=== PATIENT | male | born 1960 | race Caucasian/White ===

== ENCOUNTER 2021-06-03 13:22 | Day surgery (SDC) | payer OTHER ==
[~2021-06-03] VITALS: Ht 188 cm; Wt 81.2 kg
[~2021-06-03 13:22] MED LIST: GABA300 PO; GLIM2 PO; GLUCHON; HYDACE10B PO; HYDACE5; HYDACE5 PO; HYDACE7.5 PO; LORA.5 PO; LORA1 PO; NAPR500 PO; NEOPOLHCSU AS; Norco 5-325 Ta1 EACH PO; OMEP10ER PO; OXYC5 PO; PREG25 PO; PROP10 PO; RANI150 PO; VIVLODEX10 MG PO; [UNRECOGNIZED DRUG - REMARK]
[2021-06-03] MEDS ORDERED: JARDIANCE25 MG PO (14:33)
[2021-06-03] MEDS ORDERED: METF500 PO (14:33)
[2021-06-03] MEDS ORDERED: NOVOLOG FL100 UNIT/3 SC (14:35)
[2021-06-03] MEDS ORDERED: INSULANI SC (14:36)
--- NOTE | 2021-06-03 15:38 | NUR ---
06/03/21 1537 Alison Houston DEXTROSE 5% 250ML RUN IN WITH BAG OF LR FOR BS OF 72. PT NOT SYMPTOMATIC
== END 2021-06-03 16:28 | disposition home or self-care (01) ==
LOC: ORSCSDS 13:22
PROVIDERS: Internal Medicine Gastroenterology
PROC: 0DBN8ZX Excision of Sigmoid Colon, Via Natural or Artificial Opening Endoscopic, Diagnostic (ICD-10-PCS; principal; 2021-06-03 14:30)
DX: Z12.11 Encounter for screening for malignant neoplasm of colon (principal); K63.5 Polyp of colon; K57.30 Diverticulosis of large intestine without perforation or abscess without bleeding; K64.8 Other hemorrhoids; E11.9 Type 2 diabetes mellitus without complications; Z79.4 Long term (current) use of insulin; Z79.899 Other long term (current) drug therapy
CPT/HCPCS: 82947; 88305; J2704; J7060; J7120

== ENCOUNTER 2023-04-06 10:27 | Day surgery (SDC) | payer OTHER ==
[~2023-04-06] VITALS: Ht 188 cm; Wt 79.0 kg
[2023-04-06] VITALS (19 sets, daily range): BP systolic 96–127; BP diastolic 56–89
[~2023-04-06 10:27] MED LIST changes: +ASPI81CH PO; +ATOR10 PO; +Acetaminophen 500 MG Tab PO SCH; +CeFAZolin Sodium 2,000 MG in NS 50 ML IV SCH; +Chlorhexidine Mouth Care 15 ML UDC MT SCH; +INSULANI SC; +JARDIANCE25 MG PO; +LOSA50 PO; +Lactated Ringer's 1,000 ML IV SCH; +METF500 PO; +METO25 PO; +NOVOLOG FL100 UNIT/3 SC; +OxyCODONE HCL 10 MG TABCR PO SCH; +Ropivacaine 0.5% HCl/Pf 67.75 MG,EPINEPHrine HCL 0.25 MG,Ketorolac Tromethamine 15 MG,C... INFIL SCH
[2023-04-06] MEDS ORDERED: QUET100 PO (10:51)
[2023-04-06] MEDS ORDERED: TRESIBA100 UNIT/2 SC (10:52)
[2023-04-06] MEDS ORDERED: NOVOLOG100 UNIT/3 SC (10:53)
[2023-04-06] MEDS ORDERED: TRANEXAMIC ACID IV SCH (10:55)
[2023-04-06] MEDS ORDERED: NS IV SCH (10:55)
[2023-04-06] MEDS ORDERED: FentaNYL Citrate 50 MCG/ML 2 ML Injection ONE (11:20)
[2023-04-06] MEDS ORDERED: propofoL 40 ML IV ONE (11:20)
[2023-04-06] MEDS ORDERED: Lidocaine HCl 2% 20 ML MDV ONE (11:21)
[2023-04-06] MEDS ORDERED: Metoclopramide HCl 5MG / ML 2ML Vial IV PRN ×2 (11:30→13:25)
[2023-04-06] MEDS ORDERED: Midazolam HCl 1MG / ML 2ML Vial IV PRN (11:30)
--- NOTE | 2023-04-06 11:34 | NUR ---
Ambulatory in Day Surgery WITH STEADY GAIT. ABLE TO USE RESTROOM INDEPENDENTLY. Surgical site prepped with 2% Chlorhexidine cloth wipe, SMALL BRUISE NOTED ON INSIDE OF RIGHT KNEE BUT SKIN IS INTACT. History, Chart, Medications and Allergies reviewed before start of procedure. Pre-Op teaching done. Pt verbalizes understanding, ALSO AT BEDSIDE. Lungs clear T/O to Auscultation. Patient confirms NPO status and agrees with scheduled surgery. GLASSES GIVEN TO IN PRE OP. HEARING AIDS TO BE PLACED IN PACU WITH PATIENT STICKER.
[2023-04-06] MEDS ORDERED: Lidocaine HCl 1% 5 ML SYR INJ ONE (11:35)
[2023-04-06] MEDS ORDERED: FentaNYL Citrate 50 MCG/ML 2 ML Injection IV PRN ×3 (11:35)
[2023-04-06] MEDS ORDERED: HYDROmorphone HCl/Pf 1MG SYR IV PRN ×2 (11:35→13:30)
[2023-04-06] MEDS ORDERED: Ondansetron HCl 2 MG / ML 2ML Vial IV PRN ×2 (11:35→13:25)
[2023-04-06] MEDS ORDERED: Phenylephrine HCl 100 MCG/ML-NS 10MLSYR (1MG/10ML) ONE ×3 (11:36→14:18)
[2023-04-06] MEDS ORDERED: FLU VACC QS2023-24(6MOS UP)/PF 60 MCG/0.5 ML SYRINGE IM SCH (13:25)
[2023-04-06] MEDS ORDERED: OxyCODONE HCL 5 MG TAB PO PRN ×2 (13:25→13:35)
[2023-04-06] MEDS ORDERED: Magnesium Hydroxide Conc 10 ML UDC PO PRN (13:25)
[2023-04-06] MEDS ORDERED: Promethazine HCl 25 MG Tab PO PRN (13:30)
[2023-04-06] MEDS ORDERED: Lactated Ringer's 1,000 ML IV SCH (13:30)
[2023-04-06] MEDS ORDERED: Bisacodyl 10 MG Supp PR PRN (13:30)
[2023-04-06] MEDS ORDERED: DiphenhydrAMINE HCL 25 MG Cap PO PRN (13:30)
[2023-04-06] MEDS ORDERED: ePHEDrine Sulfate 50 MG/ML 1ML Injection ONE (13:41)
[2023-04-06] MEDS ORDERED: propofoL 60 ML IV ONE (13:53)
--- NOTE | 2023-04-06 14:04 | NUR ---
04/06/23 1404 Kim Sandoval SPINAL NERVE BLOCK COMPLETED BY DR. TEJADA UPON ENTRY TO OR. PT TOLERATED WELL.
[2023-04-06] MEDS ORDERED: Acetaminophen 500 MG Tab PO SCH (16:00)
[2023-04-06] MEDS ORDERED: Metoclopramide HCl 5MG / ML 2ML Vial ONE (16:10)
--- NOTE | 2023-04-06 17:50 | NUR ---
ADMIT TO ROOM 221 PATIENT POST OP VITALS STABLE, AQUACEL DRESSING TO R KNEE, C/D/I. POLAR MATTHEW IN PLACE. PATIENT HAVING NAUSEA AND VOMITS 150ML. MEDICATED WITH ZOFRAN.HAS BUD SENSATION TO BILAT FEET. NUMB TO BILAT UPPER LEGS. UNABLE TO WIGGLE TOES. IV FLUIDS RUNNING. RESTING AT THIS TIME. CALL LIGHT IN REACH. SCD'S ON.
[2023-04-06] MEDS ORDERED: Ketorolac Tromethamine 15mg Vial IV SCH (18:00)
[2023-04-06] MEDS ORDERED: QUEtiapine Fumarate 100 MG Tab PO SCH (21:00)
[2023-04-06] MEDS ORDERED: Docusate Sodium 100 MG Cap PO SCH (21:00)
[2023-04-06] MEDS ORDERED: CeFAZolin Sodium 2,000 MG in NS 50 ML IV SCH (21:30)
[2023-04-07 04:35] LABS: BASOPHILS ABSOLUTE AUTO 0.04 K/mm3 (0.00-0.23); BASOPHILS PERCENT AUTO 0 % (0-2); EOSINOPHILS ABSOLUTE AUTO 0.09 K/mm3 (0.00-0.68); EOSINOPHILS PERCENT AUTO 1 % (0-6); Hematocrit 32.7 % (37.0-53.0); Hemoglobin 10.6 g/dL (13.5-17.5); IMMATURE GRAN ABSOLUTE AUTO 0.04 K/mm3 (0.00-0.10); IMMATURE GRAN PERCENT AUTO 0 % (0-1); LYMPHOCYTES ABSOLUTE AUTO 0.76 K/mm3 (0.84-5.20); LYMPHOCYTES PERCENT AUTO 9 % (21-46); MONOCYTES ABSOLUTE AUTO 0.66 K/mm3 (0.16-1.47); MONOCYTES PERCENT AUTO 7 % (4-13); Mean Corpuscular HGB Conc 32.4 g/dL (31.5-36.5); Mean Corpuscular Volume 89 fL (80-100); NEUTROPHILS PERCENT AUTO 82 % (41-73); Platelet Count 179 K/mm3 (150-400); RDW Coefficient Variation 13.3 % (11.7-14.2); RDW Standard Deviation 43.8 fL (35.1-46.3); Red Blood Cell Count 3.66 M/mm3 (4.30-5.90); White Blood Cell Count 8.99 K/mm3 (4.00-11.30)
[2023-04-07 04:42] VITALS: BP 115/65
[2023-04-07 06:21] LABS: Bun/Creatinine Ratio 30.6 (12.0-20.0); Calcium, Blood 8.5 mg/dL (8.5-10.1); Creatinine, Blood 0.65 mg/dL (0.60-1.20); Magnesium, Blood 2.2 mg/dL (1.6-2.4); Potassium, Blood 3.8 mmol/L (3.5-5.5)
[2023-04-07 07:22] VITALS: BP 107/75
[2023-04-07] MEDS ORDERED: Insulin Human Lispro 100 Units/ML 3ML Syringe SC SCH (07:30)
--- NOTE | 2023-04-07 08:00 | NUR ---
SHIFT SUMMARY NOC. PT POD 1 FOR RIGHT TOTAL KNEE WITH DR. HADDAD. PT A/O X4, VOIDING URINE AND TOLERATING PO INTAKE. PT HAD NAUSEA AT BEGINNING OF SHIFT WHICH RESOLVED. PT MEDICATED FOR PAIN WITH RELIEF OF SX. PT AMBULATED TO THE BR WHEN SENSATION RETURNED FROM SPINAL. PT USES SBA, FWW AND GAIT BELT. PT RESTED WITH EYES CLOSED AND CALL LIGHT IN REACH.
[2023-04-07] MEDS ORDERED: Losartan Potassium 50 MG Tab PO SCH (09:00)
[2023-04-07] MEDS ORDERED: Empagliflozin 25 MG TAB PO SCH (09:00)
[2023-04-07] MEDS ORDERED: Aspirin 81 MG Chew PO SCH (09:00)
[2023-04-07] MEDS ORDERED: Atorvastatin 10 MG Tab PO SCH (09:00)
[2023-04-07] MEDS ORDERED: INSULIN DEGLUDEC 100 UNIT/ML SC SCH (09:00)
[2023-04-07] MEDS ORDERED: ACET500 PO (10:28)
[2023-04-07] MEDS ORDERED: OXYC5 PO (10:29)
--- NOTE | 2023-04-07 11:40 | NUR ---
PATIENT DISCHARGE TOLERATING PO INTAKE, VOIDING, PASING GAS. ABLE TO CLEAR PT. UP SBA FWW, GB. MEDICATED FOR PAIN PER EMAR, TOLERATING WELL. AQUACELS TO RIGHT KNEE C/D/I. DISCHARGE INSTRUCTIONS READ AND SIGNED. IV'S TAKEN OUT INTACT AND DOCUMENTED. PATIENT LEAVES VIA PRIVATE VEHICLE.
== END 2023-04-07 10:59 | disposition home or self-care (01) ==
LOC: ORSCMMR 10:27 → ORD 10:30 → ORSCMMR 13:00 → ORD 13:00 → SURS 16:57 → ORSCMMR 04-07 10:59
PROVIDERS: Orthopaedic Surgery
PROC: 0SRC0JA Replacement of Right Knee Joint with Synthetic Substitute, Uncemented, Open Approach (ICD-10-PCS; principal; 2023-04-06 13:00)
DX: M17.11 Unilateral primary osteoarthritis, right knee (principal); E11.9 Type 2 diabetes mellitus without complications; F41.9 Anxiety disorder, unspecified; F32.A Depression, unspecified; Z79.4 Long term (current) use of insulin; Z79.84 Long term (current) use of oral hypoglycemic drugs; Z79.899 Other long term (current) drug therapy
CPT/HCPCS: 27447; 0055T; 36415; 73560-RT; 80048; 82947; 83735; 85025; 97110; 97116; 97162; 97530; A9270; C1713; C1776; J0171; J0690; J0735; J1815; J1885; J2250; J2371; J2405; J2704; J2765; J2795; J3010; J7120